=== PATIENT | female | born 2000 | race Caucasian/White ===

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

== ENCOUNTER 2019-01-15 17:55 | Emergency (ER) | payer MEDICAID, OTHER ==
[~2019-01-15] VITALS: Ht 165.1 cm; Wt 76.4 kg
[~2019-01-15 17:55] MED LIST changes: +NORC1TAB7 PO; +ONDA4TAB6 PO
[2019-01-15] MEDS ORDERED: OXYC1TAB23 PO (18:06)
[2019-01-15 19:46] LABS: HEMOGLOBIN 14.7 g/dl (12.0-15.5); MEAN CORPUSCULAR HEMOGLOBIN 31.3 pg (27.0-33.0); MEAN CORPUSCULAR HGB CONC 34.2 g/dl (32.0-36.5); MEAN CORPUSCULAR VOLUME 91.5 fl (80.0-96.0); PLATELET COUNT, AUTOMATED 348 10^3/uL (150-450); WHITE BLOOD COUNT 11.2 10^3/uL (4.0-10.0)
[2019-01-15 20:21] LABS: ATYPICAL LYMPH 13 % (0-5); BASOPHILS 1 % (0-1); LYMPHOCYTES 43 % (16-44); MONOCYTES 5 % (0-5); NEUTROPHILS 37 % (28-66); PLATELET ESTIMATE NORMAL (NORMAL)
[2019-01-15 21:24] VITALS: BP 116/75
--- NOTE | 2019-01-15 21:25 | REPVR ---
PROCEDURE INFORMATION: Exam: US Pelvis Complete, Transabdominal and US Duplex Artery or Vein, Ovaries, Limited Exam date and time: 01/15/2019 8:39 PM Age: 18 years old Clinical history: Pelvic pain; Additional info: Pelvic pain, ovarian cyst 3 wks ago, recent dx chlamydia fri TECHNIQUE: Imaging protocol: Real-time transabdominal pelvic ultrasound with image documentation. Real-time duplex ultrasound scan of the arterial or venous flow of the ovaries with B-mode, color Doppler flow and spectral waveform analysis. Complete Pelvis, Limited Duplex. COMPARISON: US PELVIC NON-OB COMPLETE 12/31/2018 8:41 PM FINDINGS: Uterus/cervix: The uterus measures 7.1 x 2.5 x 3.9 cm. It is anteverted and homogeneous in echotexture, without demonstrated lesion. Endometrium measures 7.3 mm in thickness. Right adnexa: The right ovary measures 4.8 x 4.1 x 4.0 cm. It contains a mildly complex cyst with low level echoes measuring 4.1 x 3.2 x 2.8 cm. There is internal arterial flow. Peak systolic velocity 11.3 cm/s, end diastolic velocity 5.7 cm/s, resistive index 0.50. Left adnexa: The left ovary measures 2.6 x 1.9 x 2.4 cm and contains a 1.6 cm follicle. There is internal arterial flow. Peak systolic velocity 17.1 cm/s, end-diastolic velocity 6.1 cm/s, resistive index 0.64. Free fluid: No significant free fluid is demonstrated. Bladder: Unremarkable as visualized. IMPRESSION: 1. 4.1 cm mildly complex right ovarian cyst, previously with a 5.2 cm complex cyst in this ovary on 12/31/18. Recommend 6-12 week follow-up to ensure resolution. 2. 1.6 cm left ovarian follicle. 3. Internal arterial flow to both ovaries, without torsion. Electronically signed by: Luis Eduardo Stein On 01/15/2019 21:25:00 PM
[2019-01-15] MEDS ORDERED: MACR100C43 PO (22:00)
[2019-01-15] MEDS ORDERED: NITROFURANTOIN (MACROBID) 100 MG CAP PO ONE (22:00)
[2019-01-15] MEDS ORDERED: KETO10TAB PO (22:00)
[2019-01-15] MEDS ORDERED: KETOROLAC TROMETHAMINE 10 MG TAB PO ONE (22:00)
--- NOTE | 2019-01-16 10:39 | ED PDOC ---
Post-Departure Follow-Up leonidas serrano faxed formal report of pelvic us for fu Rahul Jasmine MD Jan 16, 2019 10:39
== END 2019-01-15 22:12 | disposition home or self-care (01) ==
LOC: M ED 17:55
DX: N83.201 Unspecified ovarian cyst, right side (principal); N83.202 Unspecified ovarian cyst, left side; N39.0 Urinary tract infection, site not specified; F17.210 Nicotine dependence, cigarettes, uncomplicated

== ENCOUNTER → 2022-07-12 | Outpatient (REF) | payer MEDICARE ==
[~2022-07-12] MED LIST changes: +MACR100C43 PO; +OXYC1TAB23 PO
== END ==
LOC: M PLALAB 10:27
PROVIDERS: ATTEND Advanced Practice Midwife
DX: Z34.81 Encounter for supervision of other normal pregnancy, first trimester (principal)

== ENCOUNTER → 2022-07-21 | Outpatient (CLI) | payer MEDICARE ==
[2022-07-21 14:06] LABS: HEMATOCRIT 38.4 % (36.0-47.0); HEMOGLOBIN 12.9 g/dl (12.0-15.5); MEAN CORPUSCULAR HEMOGLOBIN 32.3 pg (27.0-33.0); MEAN CORPUSCULAR HGB CONC 33.6 g/dl (32.0-36.5); PLATELET COUNT, AUTOMATED 272 10^3/uL (150-450); WHITE BLOOD COUNT 9.2 10^3/uL (4.0-10.0)
[2022-07-21 14:33] LABS: GC DNA AMPLIFICATION NEGATIVE (NEGATIVE)
[2022-07-21 15:02] LABS: HIV 1&2 SCREEN NEGATIVE (NEGATIVE)
[2022-07-21 15:10] LABS: HEPATITIS C VIRUS ABY INDEX 0.1 INDEX (<0.8)
== END ==
LOC: M LAB 11:39
PROVIDERS: ATTEND Advanced Practice Midwife
DX: Z34.81 Encounter for supervision of other normal pregnancy, first trimester (principal); Z79.899 Other long term (current) drug therapy

== ENCOUNTER → 2022-09-14 | Outpatient (CLI) | payer OTHER | LOC: M WHC 08:34 | PROVIDERS: ATTEND Obstetrics & Gynecology | DX: Z34.92 Encounter for supervision of normal pregnancy, unspecified, second trimester (principal) ==

== ENCOUNTER → 2022-10-31 | Outpatient (CLI) | payer OTHER ==
[2022-10-31 13:35] LABS: HEMOGLOBIN 12.1 g/dl (12.0-15.5); MEAN CORPUSCULAR HEMOGLOBIN 32.5 pg (27.0-33.0); MEAN CORPUSCULAR HGB CONC 33.6 g/dl (32.0-36.5); MEAN CORPUSCULAR VOLUME 96.8 fl (80.0-96.0); PLATELET COUNT, AUTOMATED 237 10^3/uL (150-450); RED BLOOD COUNT 3.72 10^6/uL (4.00-5.40); WHITE BLOOD COUNT 9.4 10^3/uL (4.0-10.0)
[2022-10-31 15:08] LABS: GC DNA AMPLIFICATION NEGATIVE (NEGATIVE)
== END ==
LOC: M LAB 12:44
PROVIDERS: ATTEND Advanced Practice Midwife
DX: Z34.92 Encounter for supervision of normal pregnancy, unspecified, second trimester (principal)

== ENCOUNTER → 2022-12-09 | Outpatient (CLI) | payer OTHER | LOC: M LAB 09:08 | PROVIDERS: ATTEND Advanced Practice Midwife | DX: Z34.92 Encounter for supervision of normal pregnancy, unspecified, second trimester (principal) ==

== ENCOUNTER → 2023-01-16 | Outpatient (REF) | payer OTHER, MEDICARE | LOC: M SFHCWAGY 10:00 | PROVIDERS: ATTEND Specialist | DX: Z34.83 Encounter for supervision of other normal pregnancy, third trimester (principal) ==

== ENCOUNTER 2023-01-21 11:09 | Outpatient (CLI) | payer MEDICARE, OTHER ==
[~2023-01-21] VITALS: Ht 160 cm; Wt 75.7 kg
[2023-01-21 11:20] VITALS: BP 129/78
[2023-01-21] MEDS ORDERED: VALT500T PO (11:29)
[2023-01-21] MEDS ORDERED: HOME MED LIST COMPLETE! XX SCH (11:35)
[2023-01-26] MEDS ORDERED: PRENTAB9 PO (14:07)
== END 2023-01-21 13:15 | disposition home or self-care (01) ==
LOC: M LDO 11:09
PROVIDERS: ATTEND Obstetrics & Gynecology
DX: O36.8130 Decreased fetal movements, third trimester, not applicable or unspecified (principal); O26.893 Other specified pregnancy related conditions, third trimester; R10.2 Pelvic and perineal pain; Z3A.37 37 weeks gestation of pregnancy
CPT/HCPCS: 59025; G0463

== ENCOUNTER → 2023-01-23 | Outpatient (CLI) | payer OTHER ==
[~2023-01-23] MED LIST changes: +PRENTAB9 PO; +VALT500T PO
[2023-01-23 14:30] LABS: HEMATOCRIT 37.8 % (36.0-47.0); MEAN CORPUSCULAR HEMOGLOBIN 32.6 pg (27.0-33.0); MEAN CORPUSCULAR HGB CONC 34.4 g/dl (32.0-36.5); MEAN CORPUSCULAR VOLUME 94.7 fl (80.0-96.0); PLATELET COUNT, AUTOMATED 256 10^3/uL (150-450); RED BLOOD COUNT 3.99 10^6/uL (4.00-5.40); WHITE BLOOD COUNT 8.5 10^3/uL (4.0-10.0)
[2023-01-23 14:34] LABS: LDH LACTATE DEHYDROGENASE 153 U/L (120-246)
[2023-01-23 14:35] LABS: ALT/SGPT 15 U/L (7.0-40); AST/SGOT 15 U/L (<34); BILIRUBIN,TOTAL 0.4 MG/DL (0.3-1.2); CREATININE FOR GFR 0.52 MG/DL (0.55-1.30); GLOMERULAR FILTRATION RATE > 60.0 (>60)
[2023-01-23 14:37] LABS: URIC ACID 4.3 MG/DL (3.1-7.8)
[2023-01-23 14:55] LABS: TOTAL PROTEIN,RANDOM URINE 11.5 MG/DL (0.0-14.0)
== END ==
LOC: M PLALAB 08:31
PROVIDERS: ATTEND Advanced Practice Midwife
DX: O13.3 Gestational [pregnancy-induced] hypertension without significant proteinuria, third trimester (principal); Z3A.00 Weeks of gestation of pregnancy not specified

== ENCOUNTER → 2023-07-24 | Outpatient (CLI) | payer OTHER ==
[~2023-07-24] MED LIST changes: +ONDA-282 PO; -ONDA4TAB6 PO
[2023-07-24 11:30] LABS: HEMATOCRIT 36.9 % (36.0-47.0); HEMOGLOBIN 12.7 g/dl (12.0-15.5); MEAN CORPUSCULAR HEMOGLOBIN 31.4 pg (27.0-33.0); MEAN CORPUSCULAR HGB CONC 34.4 g/dl (32.0-36.5); MEAN CORPUSCULAR VOLUME 91.3 fl (80.0-96.0); PLATELET COUNT, AUTOMATED 272 10^3/uL (150-450); RED BLOOD COUNT 4.04 10^6/uL (4.00-5.40); WHITE BLOOD COUNT 7.8 10^3/uL (4.0-10.0)
[2023-07-24 11:59] LABS: HIV 1&2 SCREEN NEGATIVE (NEGATIVE)
[2023-07-24 12:06] LABS: HEPATITIS C VIRUS ABY INDEX 0.02 INDEX (<0.8)
[2023-07-24 13:00] LABS: GC DNA AMPLIFICATION NEGATIVE (NEGATIVE)
== END ==
LOC: M PLALAB 08:24
PROVIDERS: ATTEND Advanced Practice Midwife
DX: Z34.92 Encounter for supervision of normal pregnancy, unspecified, second trimester (principal)

== ENCOUNTER → 2023-08-21 | Outpatient (REF) | payer MEDICARE, OTHER ==
[2023-08-21 13:34] LABS: TOTAL PROTEIN,RANDOM URINE < 6.0 MG/DL (0.0-14.0)
== END ==
LOC: M SFHCWAGY 12:14
PROVIDERS: ATTEND Obstetrics & Gynecology
DX: Z87.59 Personal history of other complications of pregnancy, childbirth and the puerperium (principal)

== ENCOUNTER → 2023-09-04 | Outpatient (CLI) | payer OTHER | LOC: M WHC 09:37 | PROVIDERS: ATTEND Advanced Practice Midwife | DX: Z34.92 Encounter for supervision of normal pregnancy, unspecified, second trimester (principal) ==

== ENCOUNTER → 2023-12-06 | Outpatient (CLI) | payer MEDICARE, OTHER ==
[2023-12-06 12:35] LABS: HEMATOCRIT 35.5 % (36.0-47.0); HEMOGLOBIN 12.3 g/dl (12.0-15.5); MEAN CORPUSCULAR HEMOGLOBIN 32.2 pg (27.0-33.0); MEAN CORPUSCULAR HGB CONC 34.6 g/dl (32.0-36.5); MEAN CORPUSCULAR VOLUME 92.9 fl (80.0-96.0); PLATELET COUNT, AUTOMATED 261 10^3/uL (150-450); RED BLOOD COUNT 3.82 10^6/uL (4.00-5.40); WHITE BLOOD COUNT 13.2 10^3/uL (4.0-10.0)
[2023-12-06 14:10] LABS: GC DNA AMPLIFICATION NEGATIVE (NEGATIVE)
[2023-12-06 14:48] LABS: HIV 1&2 SCREEN NEGATIVE (NEGATIVE)
[2023-12-06 14:56] LABS: HEPATITIS C VIRUS ABY INDEX 0.03 INDEX (<0.8)
== END ==
LOC: M LAB 11:36
PROVIDERS: ATTEND Advanced Practice Midwife
DX: O99.332 Smoking (tobacco) complicating pregnancy, second trimester (principal); Z3A.00 Weeks of gestation of pregnancy not specified

== ENCOUNTER → 2023-12-25 | Outpatient (CLI) | payer MEDICARE, OTHER ==
[~2023-12-25] MED LIST changes: +ACET-897 PO; +ECOT81TA5 PO; +ONDA-83 PO; +VALA500T5 PO
[2023-12-25 15:12] LABS: HEMATOCRIT 36.1 % (36.0-47.0); HEMOGLOBIN 12.2 g/dl (12.0-15.5); MEAN CORPUSCULAR HEMOGLOBIN 32.1 pg (27.0-33.0); MEAN CORPUSCULAR HGB CONC 33.8 g/dl (32.0-36.5); PLATELET COUNT, AUTOMATED 228 10^3/uL (150-450); WHITE BLOOD COUNT 12.4 10^3/uL (4.0-10.0)
[2023-12-25 15:42] LABS: URIC ACID 3.8 MG/DL (3.1-7.8)
[2023-12-25 15:46] LABS: LDH LACTATE DEHYDROGENASE 123 U/L (120-246)
[2023-12-25 15:47] LABS: ALT/SGPT 13 U/L (7.0-40); AST/SGOT 9 U/L (<34); BILIRUBIN,TOTAL 0.3 MG/DL (0.3-1.2); CREATININE FOR GFR 0.56 MG/DL (0.55-1.30); CREATININE,RANDOM URINE 36.6 MG/DL; GLOMERULAR FILTRATION RATE > 60.0 (>60)
[2023-12-25 15:49] LABS: TOTAL PROTEIN,RANDOM URINE < 6.0 MG/DL (0.0-14.0)
== END ==
LOC: M PLALAB 11:54
PROVIDERS: ATTEND Advanced Practice Midwife
DX: O16.3 Unspecified maternal hypertension, third trimester (principal); Z3A.00 Weeks of gestation of pregnancy not specified

== ENCOUNTER 2023-12-29 06:29 | Inpatient (IN) | payer OTHER, MEDICARE ==
[2023-12-29] VITALS (11 sets, daily range): BP systolic 120–141; BP diastolic 63–80; O2SAT 98–100
[~2023-12-29] VITALS: Ht 160 cm; Wt 77.0 kg
[~2023-12-29 06:29] MED LIST changes: -ACET-897 PO; -ECOT81TA5 PO; -ONDA-83 PO; -VALA500T5 PO
[2023-12-29] MEDS: LACTATED RINGER'S 1000 ML IV STA (06:36)
[2023-12-29] MEDS: PENICILLIN G POTASSIUM 5 MU IV 5 MU in DEXTROSE 5% (D5W) MINI-BAG PLU 100 ML IV STA (06:36)
[2023-12-29] MEDS ORDERED: LIDOCAINE 1% MDV 20ML VIAL INFIL PRN (06:40)
[2023-12-29] MEDS ORDERED: TRANEXAMIC ACID INJection 1,000 MG in NS 100 ML IV PRN (06:40)
[2023-12-29] MEDS ORDERED: CARBOPROST TROMETHAMINE 250 MCG/ML AMP IM PRN (06:40)
[2023-12-29] MEDS ORDERED: LR 1,000 ML IV SCH (06:40)
[2023-12-29 06:56] LABS: HEMATOCRIT 39.3 % (36.0-47.0); HEMOGLOBIN 13.7 g/dl (12.0-15.5); MEAN CORPUSCULAR HEMOGLOBIN 32.2 pg (27.0-33.0); MEAN CORPUSCULAR HGB CONC 34.9 g/dl (32.0-36.5); MEAN CORPUSCULAR VOLUME 92.3 fl (80.0-96.0); PLATELET COUNT, AUTOMATED 242 10^3/uL (150-450); RED BLOOD COUNT 4.26 10^6/uL (4.00-5.40); WHITE BLOOD COUNT 15.7 10^3/uL (4.0-10.0)
[2023-12-29] MEDS: OXYTOCIN DRIP 30 UNITS in IV 1 EA IV PRN (07:29)
[2023-12-29 08:07] LABS: HEPATITIS C VIRUS ABY INDEX < 0.02 INDEX (<0.8)
[2023-12-29] MEDS ORDERED: DIBUCAINE 1% OINTMENT 30GM TOP PRN (08:40)
[2023-12-29] MEDS ORDERED: RHOGAM 300MCG (1500IU) INJ IM SCH (08:40)
[2023-12-29] MEDS ORDERED: DOCUSATE SODIUM 100MG CAPSULE PO PRN (08:40)
[2023-12-29] MEDS ORDERED: METHYLERGONOVINE MALEATE 0.2 MG TAB PO PRN (08:40)
[2023-12-29] MEDS ORDERED: ECOT81TA5 PO (08:51)
[2023-12-29] MEDS ORDERED: VALA500T5 PO (08:52)
[2023-12-29] MEDS ORDERED: ACET-897 PO (08:53)
[2023-12-29] MEDS ORDERED: ONDA-83 PO (08:54)
[2023-12-29] MEDS ORDERED: HOME MED LIST COMPLETE! XX SCH (08:55)
[2023-12-29] MEDS ORDERED: **PENDING PCN ENTRY XX SCH (09:00)
[2023-12-29] MEDS: IBUPROFEN 600MG TAB PO PRN (09:09)
[2023-12-29] MEDS: PRENATAL VITAMINS CHEWABLE TABLET PO SCH (09:09)
[2023-12-29] MEDS ORDERED: PEN G POT 3,000,000 UNIT/50 ML 3,000,000 UNIT in IV 1 EA IV SCH (10:40)
[2023-12-29] MEDS: ACETAMINOPHEN 500 MG TAB PO PRN (14:19)
[2023-12-30] MEDS: IBUPROFEN 800 MG TAB PO PRN (00:35)
[2023-12-30 05:58] VITALS: BP 124/72; O2SAT 98
[2023-12-30] MEDS: ACETAMINOPHEN 325 MG TAB PO PRN (07:42)
[2023-12-30 18:01] VITALS: BP 129/71; O2SAT 98
[2023-12-31 05:36] VITALS: BP 125/82; O2SAT 100
[2023-12-31] MEDS: FLUZONE VACCINE TRIVALENT PF(2024-25) 0.5ML SYRINGE IM.IMMUN ONE (07:52)
[2023-12-31 08:05] VITALS: BP 125/82; TEMP 97.3; O2SAT 100
[2023-12-31] MEDS: MEASLES,MUMPS,RUBELLA VACCINE INJ (MMR-II) SC.IMMUN ONE (09:00)
== END 2023-12-31 13:07 | disposition home or self-care (01) | DRG 560 ==
LOC: M LDO 06:29 → M LDI 06:35 → M OBS 09:30
PROVIDERS: ADMIT Obstetrics & Gynecology; ATTEND Obstetrics & Gynecology
PROC: 10E0XZZ Delivery of Products of Conception, External Approach (ICD-10-PCS; principal; 2023-12-29)
DX: O60.14X0 Preterm labor third trimester with preterm delivery third trimester, not applicable or unspecified (principal); Z37.0 Single live birth; Z3A.35 35 weeks gestation of pregnancy

== ENCOUNTER → 2024-10-23 | Outpatient (REF) | payer OTHER, MEDICARE ==
[~2024-10-23] MED LIST changes: +ACET-897 PO; +ECOT81TA5 PO; +ONDA-83 PO; +VALA500T5 PO
[2024-10-26 13:57] LABS: HPV APTIMA Not Detected (Not Detected)
== END ==
LOC: M SFHCWAGY 08:49
PROVIDERS: ATTEND Nurse Practitioner Family
DX: Z12.4 Encounter for screening for malignant neoplasm of cervix (principal); R87.610 Atypical squamous cells of undetermined significance on cytologic smear of cervix (ASC-US)